=== PATIENT | female | born 1960 | race Caucasian/White ===

== ENCOUNTER → 2018-02-27 10:48 | Outpatient (CLI) | payer OTHER, SELFPAY ==
[2018-02-27 11:08] LABS: RBC Urine None Seen (0-5/HPF); WBC Urine None Seen (0-5/HPF)
[2018-02-27 12:26] LABS: B Type Natriuretic Peptide < 100.0 (<100)
[2018-02-27 12:27] LABS: Alanine Aminotransferase 29 IU/L (9-52); Albumin 4.4 g/dL (3.5-5.0); Alkaline Phosphatase 49 U/L (38-126); Aspartate Aminotransferase 33 IU/L (14-36); Bilirubin Total 0.5 mg/dL (0.2-1.3); Blood Urea Nitrogen 20 mg/dL (7-17); Calcium 9.4 mg/dL (8.4-10.2); Carbon Dioxide 31 mmol/L (22-32); Chloride 104 mmol/L (98-107); Estimated Glomerular Filt Rate > 60.0 mL/min (>60); Globulin 2.2 g/dL (1.7-4.1); Glucose 84 mg/dL (70-100); HEMOLYSIS 17 (0-50); Potassium 4.5 mmol/L (3.4-5.1); Sodium 142 mmol/L (137-145); Total Protein 6.6 g/dL (6.3-8.2)
[2018-02-27 12:32] LABS: Appearance Urine UA CLEAR; Bilirubin Urine UA NEGATIVE (NEGATIVE); Color Urine UA YELLOW; Glucose Urine UA NEGATIVE (Normal); Ketones Urine UA NEGATIVE (NEGATIVE); Leukocyte Esterase Urine UA NEGATIVE (NEGATIVE); Nitrite Urine UA Negative (Negative); Occult Blood Urine UA NEGATIVE (Negative); Protein Urine UA NEGATIVE (Negative); Specific Gravity Urine UA 1.015 (1.000-1.035); Urobilinogen Urine UA 0.2 E.U./dL (0.2); pH Urine UA 7.5 (4.5-8.0)
[2018-02-27 13:11] LABS: Bacteria Urine Occasional (0-1); Culture Indicated Urine Cult Not Indicated; Squamous Epithelial Cell Urine 0-1 /HPF
[2018-02-27 16:59] LABS: Creatinine Urine Random 68.7 mg/dL
[2018-02-27 17:02] LABS: Microalbumi Creatinin Ratio Ur 8.7 ug/mg CR (<30); Microalbumin Urine Random < 0.6 mg/dL (0-1.6)
== END ==
PROVIDERS: PCP Family Medicine; Visit Provider Internal Medicine
DX: G62.9 Polyneuropathy, unspecified (principal); R60.0 Localized edema
CPT/HCPCS: 36415; 80053; 81001; 82043; 82570; 83880

== ENCOUNTER → 2018-12-08 08:46 | Outpatient (CLI) | payer OTHER, SELFPAY ==
--- NOTE | 2018-12-08 08:48 | DI.US.S_ITS ---
PROCEDURE: US ABDOMEN LIMITED INDICATIONS: RUQ ABD PAIN TECHNIQUE: Real-time focused scanning was performed of the abdomen, with image documentation. COMPARISON: [facility], CT, THORAX WITH CONTRAST, 02/08/2017, 23:10. FINDINGS: The liver is normal in size and echotexture without focal intrahepatic mass. No intrahepatic or extrahepatic biliary ductal dilatation. Gallbladder is partially decompressed but otherwise unremarkable. No gallbladder wall thickening, pericholecystic fluid, or gallstones. No abnormal sonographic Dow's. There is an irregular, slightly indistinct hypoechoic mass involving the head and body of the pancreas measuring 4.0 x 2.4 x 3.3 cm. Remainder of the visualized pancreas appears unremarkable. The biliary tree appears nondilated. Common bile duct measures 5 mm in diameter. No ascites. IMPRESSION: Irregular, slightly indistinct hypoechoic mass involving the head and body of the pancreas measuring 4.0 cm in maximum dimension without associated pancreatic ductal or biliary ductal dilatation. Recommend further characterization with nonemergent multiphase contrast enhanced CT or MRI of the abdomen (pancreatic mass protocol). Findings were relayed to the patient's primary care physician's clinical team at 0950 hrs on 12/08/2018. Findings relayed to Julian, clinical staff member. Dictated by: Perez Coleman M.D. on 12/08/2018 at 9:30 Approved by: Perez Coleman M.D. on 12/08/2018 at 10:07
== END ==
PROVIDERS: PCP Family Medicine; Visit Provider Physician Assistant
DX: R10.11 Right upper quadrant pain (principal); K86.9 Disease of pancreas, unspecified
CPT/HCPCS: 76705

== ENCOUNTER → 2018-12-15 06:12 | Outpatient (CLI) | payer OTHER, SELFPAY ==
--- NOTE | 2018-12-15 06:13 | DI.MRI.S_ITS ---
PROCEDURE: MR ABDOMEN WO/W CON INDICATIONS: Abnormal US showing pancreatic mass TECHNIQUE: Coronal HASTE, axial 2D FLASH in- and [id number]; axial breath-hold T2 FSE with fat saturation from the hepatic dome to the iliac crests. Oblique coronal thin-slice and radial thick slab HASTE through the biliary system. Dynamic axial VIBE during administration of contrast. Post-contrast coronal VIBE or 2D FLASH with fat saturation from the hepatic dome to the iliac crests. Optional diffusion weighted imaging and ADC may be performed. COMPARISON: None. FINDINGS: Image quality: Excellent. Pancreas and biliary system: There is a nonenhancing mass present involving the neck/proximal body of the pancreas measuring approximately 2.7 x 1.9 x 2.7 cm, consistent with adenocarcinoma of the pancreas. 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 There are resultant varicosities present. The pancreatic duct is obstructed and dilated. Common duct is likely not obstructed, as it is nondilated. Solid organs: At least 3 small, subcentimeter liver metastatic lesions are identified Gallbladder is unremarkable. Spleen is normal in size and enhancement. No adrenal nodules. Kidneys are normal in size and enhancement, without hydronephrosis. Nodes and vessels: There is a probable metastatic peripancreatic lymph node measuring 1.3 cm.. Aorta and inferior vena cava are normal in size. Bowel and peritoneum: Unenhanced bowel loops are normal in caliber throughout. No free fluid. Lung bases: No basal pleural effusions. Heart size is normal. Bones and soft tissues: No ventral hernias. Bone marrow is normal in overall signal. IMPRESSION: 1. Findings are consistent with a adenocarcinoma of the neck/body of the pancreas with associated peripancreatic metastatic lymph node and small liver metastatic lesions. 2. 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 Dictated by: Thanh Solo M.D. on 12/15/2018 at 11:11 Approved by: Thanh Solo M.D. on 12/15/2018 at 11:35
== END ==
PROVIDERS: PCP Family Medicine; Referring Provider Internal Medicine Medical Oncology; Visit Provider Family Medicine
DX: K86.9 Disease of pancreas, unspecified (principal); D49.0 Neoplasm of unspecified behavior of digestive system; I86.8 Varicose veins of other specified sites; R10.11 Right upper quadrant pain
CPT/HCPCS: 74183

== ENCOUNTER → 2019-01-27 12:13 | Outpatient (CLI) | payer OTHER, SELFPAY ==
--- NOTE | 2019-01-27 12:15 | DI.RAD.S_ITS ---
PROCEDURE: XR ABDOMEN 1V INDICATIONS: constipation TECHNIQUE: One view of the abdomen acquired. COMPARISON: None. FINDINGS: Surgical changes and devices: None. Bowel: Bowel gas pattern is abnormal with generalized colonic obstipation greater on the left than the right. Soft tissues: No suspicious abdominal calcifications. Visualized solid organ contours appear normal in size. Bones: No suspicious bony lesions. IMPRESSION: Generalize colonic obstipation, left greater than right. Dictated by: Rodrigue Allen M.D. on 01/27/2019 at 13:37 Approved by: Rodrigue Allen M.D. on 01/27/2019 at 13:37
--- NOTE | 2019-02-23 15:34 | ONC.MSW ---
Description: T/C-Introductory Navigation Call Activity: Called and left pt a message introducing myself as the OUTSIDE MAINTENANCE WORKER/BRENDEN, that we have received her referral and are actively working on beginning any pre-authorizations we will need, and that we will be f/u with calling her to schedule her initial consult visit with one of our providers. Briefly explained that I am going to be a primary contact for her ongoingly, and left my direct line to call with any further needs/questions that she may have. Will plan to move forward with scheduling by tomorrow.
--- NOTE | 2019-02-24 13:13 | ONC.MSW ---
Description: T/C received from pt Activity: Pt called to confirm that the order from her PCP is only a standing order for ongoing hydration, as needed. She will contact us should she need to schedule.
== END ==
PROVIDERS: PCP Family Medicine; Visit Provider Family Medicine
DX: K59.00 Constipation, unspecified (principal)
CPT/HCPCS: 74018

== ENCOUNTER 2019-01-27 16:10 | Emergency (ER) | payer OTHER, SELFPAY ==
[2019-01-27 16:12] VITALS: BP 118/78; PULSE 106; RESP 20; TEMP 36.7; O2SAT 97
--- NOTE | 2019-01-27 16:33 | DI.CT.S_ITS ---
PROCEDURE: CT ABDOMEN PELVIS W CON INDICATIONS: vomiting, TECHNIQUE: After the administration of intravenous contrast, 5 mm thick sections acquired from the diaphragm to the symphysis. 5 mm coronal and sagittal reformats were acquired. For radiation dose reduction, the following was used: automated exposure control, adjustment of mA and/or kV according to patient size. COMPARISON: [facility], MR, MR ABDOMEN WO/W CON, 12/15/2018, 6:32. FINDINGS: Image quality: Excellent. ABDOMEN: Lung bases: Lung bases are clear. Heart size is normal. Solid organs: Liver is normal in size and demonstrates increased hepatic metastatic disease as indicated by centrally lucent peripherally enhancing and areas of heterogeneous enhancing lesions, with reference to the prior MRI. The total number and volume of metastatic disease within the liver appears to have approximately doubled. Gallbladder is free of inflammation. Biliary system is non dilated. Pancreas has previously been documented as having a mass lesion at the pancreatic head/neck area, which has further enlarged in size, with overall current maximal dimensions of 3.2 cm AP and 5.0 cm transverse. Encasement of the adjacent retroperitoneal vasculature including branches of the celiac axis is present. No embolus is found.. Spleen is normal in size and enhancement. No adrenal nodules. Kidneys demonstrate normal size and enhancement, without hydronephrosis. Peritoneum and bowel: Bowel loops demonstrate normal wall thickness and caliber. No free fluid or air. Nodes and vessels: No retroperitoneal or mesenteric adenopathy by size criteria. Aorta and inferior vena cava are normal in size. 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 Varices are prominent across the upper abdomen from the spleen area both rightward and inferiorly directed. Miscellaneous: No ventral hernias. PELVIS: Genitourinary: Bladder wall thickness is normal. Miscellaneous: No inguinal hernias or adenopathy. Bones: No suspicious bony lesions. No vertebral body compression fractures. IMPRESSION: No intestinal obstruction or perforation is found at further enlargement of the pancreatic infiltrative mass of the retroperitoneum is documented, approximately doubling in overall volume with reference to the prior MRI. Additionally, hepatic metastatic disease also has advanced with an estimated doubling of number and size of metastatic lesions present. 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 Increased venous collateral flow from the splenic area rightward and inferiorly is noted. No gastric or bowel distention is currently found. No sign of acute or chronic cholecystitis. Dictated by: Rodrigue Allen M.D. on 01/27/2019 at 18:05 Approved by: Rodrigue Allen M.D. on 01/27/2019 at 18:11
[2019-01-27 17:13] LABS: Add Manual Diff / Slide Review NO; Basophils Absolute Auto 0 /uL (0-100); Basophils Percent Auto 0.2 % (0-2); Eosinophils Absolute Auto 0 /uL (0-450); Eosinophils Percent Auto 1.2 % (2-4); Hematocrit 38.1 % (36-46); Hemoglobin 12.9 g/dL (12.0-16.0); Lymphocytes Absolute Auto 700 /uL (1100-4500); Lymphocytes Percent Auto 21.7 % (25-40); Mean Corpuscular HGB Conc 33.8 % (30-36); Mean Corpuscular Hemoglobin 29.6 PG (26-34); Mean Corpuscular Volume 87.7 fL (80-100); Monocytes Absolute Auto 100 /uL (0-900); Monocytes Percent Auto 2.4 % (3-14); Neutrophils Absolute Auto 2500 /uL (1500-7000); Neutrophils Percent Auto 74.5 % (50-75); Platelet Count 115 X10^3/uL (150-400); Red Blood Cell Count 4.35 X10^6/uL (4.0-5.2); Red Cell Distribution Width 13.7 % (11.6-14.8); White Blood Cell Count 3.3 X10^3/uL (4.5-11.0)
[2019-01-27] MEDS: ONDANSETRON 4 MG/2 ML INJ IV ×2 (17:13→20:22)
[2019-01-27] MEDS: SODIUM CHLORIDE 0.9% 1,000 ML 1000 ML IV ×2 (17:13→19:10)
[2019-01-27 17:23] LABS: Alanine Aminotransferase 22 IU/L (9-52); Albumin 4.5 g/dL (3.5-5.0); Albumin Globulin Ratio 1.7 (1.0-2.8); Alkaline Phosphatase 61 U/L (38-126); Aspartate Aminotransferase 24 IU/L (14-36); Bilirubin Total 0.9 mg/dL (0.2-1.3); Blood Urea Nitrogen 15 mg/dL (7-17); Calcium 9.6 mg/dL (8.4-10.2); Carbon Dioxide 27 mmol/L (22-32); Chloride 98 mmol/L (98-107); Estimated Glomerular Filt Rate > 60.0 mL/min (>60); Globulin 2.7 g/dL (1.7-4.1); Glucose 95 mg/dL (80-110); HEMOLYSIS < 15 (0-50); Lipase 42 U/L (23-300); Potassium 3.8 mmol/L (3.4-5.1); Sodium 136 mmol/L (137-145); Total Protein 7.2 g/dL (6.3-8.2)
[2019-01-27 18:13] VITALS: BP 136/83; PULSE 85; RESP 16; O2SAT 100
[2019-01-27 19:00] VITALS: BP 141/87; PULSE 84; RESP 16; O2SAT 98
[2019-01-27 20:03] VITALS: BP 141/77; PULSE 83; RESP 16; O2SAT 100
[2019-01-27 21:00] VITALS: BP 129/95; PULSE 94; RESP 17; O2SAT 98
--- NOTE | 2019-01-27 21:01 | ED.NAVMDI ---
HPI - Nausea/Vomiting/Diarrhea <MILES Arzola - Last Filed: 01/27/19 21:13> General Chief complaint: Nausea/Vomiting/Diarrhea Stated complaint: wants hydration Time Seen by Provider: 01/27/19 16:33 Source: patient and family Mode of arrival: ambulatory Limitations: no limitations History of Present Illness HPI Narrative: The patient is a 58-year-old female nonsmoker with history of metastatic pancreatic cancer who presents with her daughter for chief complaint of constipation as well as nausea and vomiting. She has vomited twice since yesterday. The patient states that she has not had a bowel movement in 10 days. She states she feels her stomach ?moving around and states she is not sure whether not she has passed gas. She denies any fevers chest pain shortness of breath. She comes at the request of her PCP, who is concerned about a possible small-bowel obstruction. She had her 1st round of chemotherapy on Friday the . She states she has taken some senna, but not been too aggressive with laxatives as she is afraid for diarrhea related to chemotherapy. Related Data Home Medications Medication Instructions Recorded Confirmed [id number] [Creon] 01/27/19 loperamide 01/27/19 morphine 15 mg PO BID 01/27/19 01/27/19 ondansetron 8 mg PO TID 01/27/19 01/27/19 oxycodone 5 mg PO QID 01/27/19 01/27/19 prochlorperazine maleate 10 mg PO QID 01/27/19 01/27/19 sennosides [senna] 8.6 - 17.2 mg PO BID PRN 01/27/19 01/27/19 Previous Rx's Medication Instructions Recorded omeprazole 20 mg capsule,delayed 20 mg PO DAILY #30 cap 12/05/18 release Allergies Allergy/AdvReac Type Severity Reaction Status Date / Time No Known Drug Allergies Allergy Verified 12/16/18 11:41 Review of Systems <MILES Arzola - Last Filed: 01/27/19 21:13> Review of Systems GENERAL: Denies chills, fatigue, malaise, fever, sweats. HEENT: Denies sinus pain, ear pain, sore throat, difficulty swallowing, dizziness. RESPIRATORY: Denies dyspnea, cough, wheezing, hemoptysis, sputum. CARDIOVASCULAR: Denies chest pain, palpitations, orthopnea, edema, GASTROINTESTINAL: See HPI : Denies dysuria, frequency, incontinence, hematuria, urinary retention. MUSCULOSKELETAL: denies weakness, joint pain, or bony pain SKIN: Denies rash, skin lesions, or other NEUROLOGIC: Denies weakness, headache, numbness, change in speech, confusion, seizures, incoordination. PSYCHIATRIC: No concerning psychosocial issues. 12 point review of systems is negative except for those stated above PFSH <MILES Arzola - Last Filed: 01/27/19 21:13> Medical History Anemia (Resolved) Breast cancer (Resolved 10/13/13) Chicken pox (Resolved ~1964) Hemorrhoids (Resolved 1988) Mumps (Resolved ~1963) Surgical History Anesthesia (Resolved) History of hand surgery (Resolved 06/2009) History of third molar tooth extraction (Resolved 1975) Status post breast lumpectomy (Resolved 11/10/13) Family History Father Dementia Cancer Mother Age: 97 Hypertension Stroke Brother No problems noted. Brother No problems noted. Sister No problems noted. Sister No problems noted. Social History marital status: Smoking Status: Never smoker alcohol intake: current substance use type: does not use Family History Father Dementia Cancer Mother Age: 97 Hypertension Stroke Brother No problems noted. Brother No problems noted. Sister No problems noted. Sister No problems noted. Social History marital status: Smoking Status: Never smoker alcohol intake: current substance use type: does not use Exam <MILES Arzola - Last Filed: 01/27/19 21:13> Narrative Exam Narrative: GENERAL: Thin female in no acute distress HEAD: Atraumatic. Normocephalic. No temporal or scalp tenderness. EYES: Pupils equal round and reactive. Extraocular motions intact. No scleral icterus. No injection or drainage. ENT: Nose without bleeding, purulent drainage or septal hematoma. Throat without erythema, tonsillar hypertrophy or exudate. Uvula midline. Airway patent. NECK: Trachea midline. No JVD or lymphadenopathy. Supple, nontender, no meningeal signs. CARDIOVASCULAR: Regular rate and rhythm RESPIRATORY: Clear to auscultation. Breath sounds equal bilaterally. No wheezes, rales, or rhonchi. No cough. No increased respiratory effort. No accessory muscle use. GASTROINTESTINAL: Abdomen soft, diffusely tender, nondistended. No hepato-splenomegaly, or palpable masses. No guarding. Active bowel sounds all 4 quadrants EXTREMITIES: No clubbing, cyanosis, or edema. No joint tenderness, effusion, or edema noted. BACK: Nontender without deformity or crepitance. No flank tenderness. NEURO: AOx3. SKIN: No rash or erythema. Initial Vital Signs Initial Vital Signs: Vital Signs Temperature 98.0 F 01/27/19 16:12 Pulse Rate 106 H 01/27/19 16:12 Respiratory Rate 20 01/27/19 16:12 Blood Pressure 118/78 01/27/19 16:12 Pulse Oximetry 97 01/27/19 16:12 <Saul Quevedo DO - Last Filed: 01/27/19 22:25> Initial Vital Signs Initial Vital Signs: Vital Signs Temperature 98.0 F 01/27/19 16:12 Pulse Rate 106 H 01/27/19 16:12 Respiratory Rate 20 01/27/19 16:12 Blood Pressure 118/78 01/27/19 16:12 Pulse Oximetry 97 01/27/19 16:12 Course <MILES Arzola - Last Filed: 01/27/19 21:13> Orders Ordered: ED Orders 01/27/19 16:33 CT abdomen pelvis w con Stat 01/27/19 17:02 Complete Blood Count AUTO DIFF Stat Comprehensive Metabolic Panel Stat Lipase Stat Discontinued Medications Sodium Chloride (Normal Saline 0.9%) 1,000 mls @ 1,000 mls/hr IV BOLUS ONE Stop: 01/27/19 17:32 Last Infusion: 01/27/19 18:56 Dose: 0 mls/hr Admin: 01/27/19 17:13 Dose: 1,000 mls/hr Sodium Chloride (Normal Saline 0.9%) 1,000 mls @ 1,000 mls/hr IV BOLUS ONE Stop: 01/27/19 20:03 Last Admin: 01/27/19 19:10 Dose: 1,000 mls/hr Magnesium Citrate (Magnesium Citrate) 300 ml PO NOW ONE Stop: 01/27/19 19:13 Last Admin: 01/27/19 21:55 Dose: Not Given Ondansetron HCl (Zofran) 4 mg IV NOW ONE Stop: 01/27/19 16:34 Last Admin: 01/27/19 17:13 Dose: 4 mg Ondansetron HCl (Zofran) 4 mg IV NOW ONE Stop: 01/27/19 20:11 Last Admin: 01/27/19 20:22 Dose: 4 mg Vital Signs - 8 hr 01/27/19 16:12 01/27/19 18:13 01/27/19 19:00 Temperature 98.0 F Pulse Rate 106 H 85 84 Respiratory Rate 20 16 16 Blood Pressure 118/78 Blood Pressure [Right Arm] 136/83 141/87 H Pulse Oximetry 97 100 98 01/27/19 20:03 01/27/19 21:00 01/27/19 21:53 Temperature Pulse Rate 83 94 H 91 H Respiratory Rate 16 17 16 Blood Pressure 175/84 H Blood Pressure [Right Arm] 141/77 H 129/95 H Pulse Oximetry 100 98 100 <Saul Quevedo, - Last Filed: 01/27/19 22:25> Orders Ordered: ED Orders 01/27/19 16:33 CT abdomen pelvis w con Stat 01/27/19 17:02 Complete Blood Count AUTO DIFF Stat Comprehensive Metabolic Panel Stat Lipase Stat Discontinued Medications Sodium Chloride (Normal Saline 0.9%) 1,000 mls @ 1,000 mls/hr IV BOLUS ONE Stop: 01/27/19 17:32 Last Infusion: 01/27/19 18:56 Dose: 0 mls/hr Admin: 01/27/19 17:13 Dose: 1,000 mls/hr Sodium Chloride (Normal Saline 0.9%) 1,000 mls @ 1,000 mls/hr IV BOLUS ONE Stop: 01/27/19 20:03 Last Admin: 01/27/19 19:10 Dose: 1,000 mls/hr Magnesium Citrate (Magnesium Citrate) 300 ml PO NOW ONE Stop: 01/27/19 19:13 Last Admin: 01/27/19 21:55 Dose: Not Given Ondansetron HCl (Zofran) 4 mg IV NOW ONE Stop: 01/27/19 16:34 Last Admin: 01/27/19 17:13 Dose: 4 mg Ondansetron HCl (Zofran) 4 mg IV NOW ONE Stop: 01/27/19 20:11 Last Admin: 01/27/19 20:22 Dose: 4 mg Vital Signs - 8 hr 01/27/19 16:12 01/27/19 18:13 01/27/19 19:00 Temperature 98.0 F Pulse Rate 106 H 85 84 Respiratory Rate 20 16 16 Blood Pressure 118/78 Blood Pressure [Right Arm] 136/83 141/87 H Pulse Oximetry 97 100 98 01/27/19 20:03 01/27/19 21:00 01/27/19 21:53 Temperature Pulse Rate 83 94 H 91 H Respiratory Rate 16 17 16 Blood Pressure 175/84 H Blood Pressure [Right Arm] 141/77 H 129/95 H Pulse Oximetry 100 98 100 MDM - Nausea/Vomiting/Diarrhea <Linh Be, DWAYNE-BC - Last Filed: 01/27/19 21:13> Lab Data Result diagrams: 01/27/19 17:02 01/27/19 17:02 Lab Results 01/27/19 01/27/19 Range/Units 17:02 17:02 WBC 3.3 L (4.5-11.0) X10^3/uL RBC 4.35 (4.0-5.2) X10^6/uL Hgb 12.9 (12.0-16.0) g/dL Hct 38.1 (36-46) % MCV 87.7 (80-100) fL MCH 29.6 (26-34) PG MCHC 33.8 (30-36) % RDW 13.7 (11.6-14.8) % Plt Count 115 L (150-400) X10^3/uL Neut % (Auto) 74.5 (50-75) % Lymph % (Auto) 21.7 L (25-40) % Rosebud % (Auto) 2.4 L (3-14) % Eos % (Auto) 1.2 L (2-4) % Baso % (Auto) 0.2 (0-2) % Neut # (Auto) 2500 (7963-9582) /uL Lymph # (Auto) 700 L (8843-9417) /uL Rosebud # (Auto) 100 (0-900) /uL Eos # (Auto) 0 (0-450) /uL Baso # (Auto) 0 (0-100) /uL Sodium 136 L (137-145) mmol/L Potassium 3.8 (3.4-5.1) mmol/L Chloride 98 (98-107) mmol/L Carbon Dioxide 27 (22-32) mmol/L BUN 15 (7-17) mg/dL Creatinine 0.50 L (0.52-1.04) mg/dL Estimated GFR > 60.0 (>60) mL/min BUN/Creatinine Ratio 30.0 H (6-22) Glucose 95 (80-110) mg/dL Calcium 9.6 (8.4-10.2) mg/dL Total Bilirubin 0.9 (0.2-1.3) mg/dL AST 24 (14-36) IU/L ALT 22 (9-52) IU/L Alkaline Phosphatase 61 (38-126) U/L Total Protein 7.2 (6.3-8.2) g/dL Albumin 4.5 (3.5-5.0) g/dL Globulin 2.7 (1.7-4.1) g/dL Albumin/Globulin Ratio 1.7 (1.0-2.8) Lipase 42 (23-300) U/L Point of Care Testing Glucose POC 105 Urine Dip Bedside Urine Glucose Negative Bedside Urine Bilirubin - Negative Bedside Urine Ketone ++ 40 Urine Specific Custer 6.5 Bedside Urine Occult Blood - Negative Bedside Urine pH 6.5 Bedside Urine Protein - Negative Bedside Urine Urobilinogen +/- 1mg Bedside Urine Nitrite - Negative Bedside Urine Leukocytes - Negative Esterase Imaging Data Abdominal CT: Radiologist's impression: [address] [address] [address] Scan Report Signed Patient: Marlney Mcdonald LMR#: [id number] : 8Acct:[id number] Age/Sex: 58 / FDate of Service: 01/27/19 Loc: ED Accession Number: [id number] Procedure: CT abdomen pelvis w con Ordering Provider: Linh Wheeler D.O. PROCEDURE: CT ABDOMEN PELVIS W CON INDICATIONS: vomiting, TECHNIQUE: After the administration of intravenous contrast, 5 mm thick sections acquired from the diaphragm to the symphysis. 5 mm coronal and sagittal reformats were acquired. For radiation dose reduction, the following was used: automated exposure control, adjustment of mA and/or kV according to patient size. COMPARISON: [facility], MR, MR ABDOMEN WO/W CON, 12/15/2018, 6:32. FINDINGS: Image quality: Excellent. ABDOMEN: Lung bases: Lung bases are clear. Heart size is normal. Solid organs: Liver is normal in size and demonstrates increased hepatic metastatic disease as indicated by centrally lucent peripherally enhancing and areas of heterogeneous enhancing lesions, with reference to the prior MRI. The total number and volume of metastatic disease within the liver appears to have approximately doubled. Gallbladder is free of inflammation. Biliary system is non dilated. Pancreas has previously been documented as having a mass lesion at the pancreatic head/neck area, which has further enlarged in size, with overall current maximal dimensions of 3.2 cm AP and 5.0 cm transverse. Encasement of the adjacent retroperitoneal vasculature including branches of the celiac axis is present. No embolus is found.. Spleen is normal in size and enhancement. No adrenal nodules. Kidneys demonstrate normal size and enhancement, without hydronephrosis. Peritoneum and bowel: Bowel loops demonstrate normal wall thickness and caliber. No free fluid or air. Nodes and vessels: No retroperitoneal or mesenteric adenopathy by size criteria. Aorta and inferior vena cava are normal in size. 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 Varices are prominent across the upper abdomen from the spleen area both rightward and inferiorly directed. Miscellaneous: No ventral hernias. PELVIS: Genitourinary: Bladder wall thickness is normal. Miscellaneous: No inguinal hernias or adenopathy. Bones: No suspicious bony lesions. No vertebral body compression fractures. IMPRESSION: No intestinal obstruction or perforation is found at further enlargement of the pancreatic infiltrative mass of the retroperitoneum is documented, approximately doubling in overall volume with reference to the prior MRI. Additionally, hepatic metastatic disease also has advanced with an estimated doubling of number and size of metastatic lesions present. 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 Increased venous collateral flow from the splenic area rightward and inferiorly is noted. No gastric or bowel distention is currently found. No sign of acute or chronic cholecystitis. Dictated by: Rodrigue Allen M.D. on 01/27/2019 at 18:05 Approved by: Rodrigue Allen M.D. on 01/27/2019 at 18:11 Abdominal x-ray: Radiologist's impression: [address] [address] XRay Report Signed Patient: Marleny Mcdonald LMR#: [id number] : 8Acct:[id number] Age/Sex: 58 / FDate of Service: 01/27/19 Loc: RAD Accession Number: [id number] Procedure: XR abdomen 1V Ordering Provider: Scott Giraldo MD PROCEDURE: XR ABDOMEN 1V INDICATIONS: constipation TECHNIQUE: One view of the abdomen acquired. COMPARISON: None. FINDINGS: Surgical changes and devices: None. Bowel: Bowel gas pattern is abnormal with generalized colonic obstipation greater on the left than the right. Soft tissues: No suspicious abdominal calcifications. Visualized solid organ contours appear normal in size. Bones: No suspicious bony lesions. IMPRESSION: Generalize colonic obstipation, left greater than right. Dictated by: Rodrigue Allen M.D. on 01/27/2019 at 13:37 Approved by: Rodrigue Allen M.D. on 01/27/2019 at 13:37 [facility] Narrative Medical decision making narrative: The patient is a 58-year-old female who presents for chief complaint of constipation, nausea and vomiting as well as possible small bowel obstruction. She does not have a small-bowel obstruction on her CT, but rather large amounts of constipation. It is noted that her metastatic disease has increased significantly in size since her previous MRI 2 months ago. I discussed this with the patient and her daughter, they state it is known. The patient is able to tolerate a p.o. trial after 2 L of IV fluid as well as 2 doses Zofran. She does have Zofran at home. Given her constipation, she was discharged with a bottle of magnesium citrate. I discussed at length follow up with her PCP, also encouraged MiraLax, senna etc. Encouraged the patient to follow up with [facility]. Images were pushed down for their a follow-up and the patient was given a disc with her images. She states she felt much improved and requested to go home several times. I discussed at length coming back to the ER for any acute concerns as his inability keep down fluids, severe abdominal pain etc. The patient has not vomited throughout her stay in the emergency department. <Saul Quevedo, DO - Last Filed: 01/27/19 22:25> Lab Data Lab Results 01/27/19 01/27/19 Range/Units 17:02 17:02 WBC 3.3 L (4.5-11.0) X10^3/uL RBC 4.35 (4.0-5.2) X10^6/uL Hgb 12.9 (12.0-16.0) g/dL Hct 38.1 (36-46) % MCV 87.7 (80-100) fL MCH 29.6 (26-34) PG MCHC 33.8 (30-36) % RDW 13.7 (11.6-14.8) % Plt Count 115 L (150-400) X10^3/uL Neut % (Auto) 74.5 (50-75) % Lymph % (Auto) 21.7 L (25-40) % Rosebud % (Auto) 2.4 L (3-14) % Eos % (Auto) 1.2 L (2-4) % Baso % (Auto) 0.2 (0-2) % Neut # (Auto) 2500 (8157-6768) /uL Lymph # (Auto) 700 L (2670-0922) /uL Rosebud # (Auto) 100 (0-900) /uL Eos # (Auto) 0 (0-450) /uL Baso # (Auto) 0 (0-100) /uL Sodium 136 L (137-145) mmol/L Potassium 3.8 (3.4-5.1) mmol/L Chloride 98 (98-107) mmol/L Carbon Dioxide 27 (22-32) mmol/L BUN 15 (7-17) mg/dL Creatinine 0.50 L (0.52-1.04) mg/dL Estimated GFR > 60.0 (>60) mL/min BUN/Creatinine Ratio 30.0 H (6-22) Glucose 95 (80-110) mg/dL Calcium 9.6 (8.4-10.2) mg/dL Total Bilirubin 0.9 (0.2-1.3) mg/dL AST 24 (14-36) IU/L ALT 22 (9-52) IU/L Alkaline Phosphatase 61 (38-126) U/L Total Protein 7.2 (6.3-8.2) g/dL Albumin 4.5 (3.5-5.0) g/dL Globulin 2.7 (1.7-4.1) g/dL Albumin/Globulin Ratio 1.7 (1.0-2.8) Lipase 42 (23-300) U/L Point of Care Testing Glucose POC 105 Urine Dip Bedside Urine Glucose Negative Bedside Urine Bilirubin - Negative Bedside Urine Ketone ++ 40 Urine Specific Custer 6.5 Bedside Urine Occult Blood - Negative Bedside Urine pH 6.5 Bedside Urine Protein - Negative Bedside Urine Urobilinogen +/- 1mg Bedside Urine Nitrite - Negative Bedside Urine Leukocytes - Negative Esterase Discharge Plan Departure Patient Disposition: Home Clinical Impression: Nausea Constipation Qualifiers: Constipation type: unspecified constipation type Qualified Code(s): K59.00 - Constipation, unspecified Discharge Date/Time: 01/27/19 21:40 Interventions: ED Discharge Assessment Last Done: 01/27/19 21:53 Instructions: Constipation (Alternative Therapy), DI for Constipation, DI for Nausea -- Adult Activity Restrictions/Additional Instructions: Today your images showed constipation without bowel obstruction. However as I discussed it does show growth of your malignancy. We have sent your images down to [facility] and given you a disc with the images. Please follow up with them as well as your primary care provider. We have sent you home with magnesium citrate, which is a laxative. I also suggest use of Colace, which is a stool softener, senna which is a laxative. You can also use MiraLax and titrate to effect. You can also use warm applesauce, mixed with warm prune juice with a tab of butter on top. Please come back to the emergency department for any acute concerns such as inability keep down fluids, severe abdominal pain, etc. Prescriptions: No Action omeprazole 20 mg capsule,delayed release(DR/EC) 20 mg PO DAILY Qty: 30 RF: 0 sennosides [senna] 8.6 mg tablet 8.6 - 17.2 mg PO BID PRN (Reason: Constipation) RF: 0 loperamide 2 mg capsule RF: 0 prochlorperazine maleate 10 mg tablet 10 mg PO QID RF: 0 ondansetron 8 mg tablet,disintegrating 8 mg PO TID RF: 0 morphine 15 mg tablet extended release 15 mg PO BID RF: 0 oxycodone 5 mg tablet 5 mg PO QID RF: 0 Creon 36,000-114,000- 180,000 unit capsule,delayed release(DR/EC) RF: 0 Referrals: Scott Giraldo MD [Primary Care Provider] - <Saul Quevedo DO - Last Filed: 01/27/19 22:25> Cosign ED Attending Carlos Enrique Attestation: I was available for consultation during this patient's emergency department encounter
--- NOTE | 2019-01-27 21:08 | ED_ITS ---
HPI - Nausea/Vomiting/Diarrhea <MILES Arzola - Last Filed: 01/27/19 21:13> General Chief complaint: Nausea/Vomiting/Diarrhea Stated complaint: wants hydration Time Seen by Provider: 01/27/19 16:33 Source: patient and family Mode of arrival: ambulatory Limitations: no limitations History of Present Illness HPI Narrative: The patient is a 58-year-old female nonsmoker with history of metastatic pancreatic cancer who presents with her daughter for chief complaint of constipation as well as nausea and vomiting. She has vomited twice since yesterday. The patient states that she has not had a bowel movement in 10 days. She states she feels her stomach ?moving around and states she is not sure whether not she has passed gas. She denies any fevers chest pain shortness of breath. She comes at the request of her PCP, who is concerned about a possible small-bowel obstruction. She had her 1st round of chemotherapy on Friday the . She states she has taken some senna, but not been too aggressive with laxatives as she is afraid for diarrhea related to chemotherapy. Related Data Home Medications Medication Instructions Recorded Confirmed [id number] [Creon] 01/27/19 loperamide 01/27/19 morphine 15 mg PO BID 01/27/19 01/27/19 ondansetron 8 mg PO TID 01/27/19 01/27/19 oxycodone 5 mg PO QID 01/27/19 01/27/19 prochlorperazine maleate 10 mg PO QID 01/27/19 01/27/19 sennosides [senna] 8.6 - 17.2 mg PO BID PRN 01/27/19 01/27/19 Previous Rx's Medication Instructions Recorded omeprazole 20 mg capsule,delayed 20 mg PO DAILY #30 cap 12/05/18 release Allergies Allergy/AdvReac Type Severity Reaction Status Date / Time No Known Drug Allergies Allergy Verified 12/16/18 11:41 Review of Systems <MILES Arzola - Last Filed: 01/27/19 21:13> Review of Systems GENERAL: Denies chills, fatigue, malaise, fever, sweats. HEENT: Denies sinus pain, ear pain, sore throat, difficulty swallowing, dizziness. RESPIRATORY: Denies dyspnea, cough, wheezing, hemoptysis, sputum. CARDIOVASCULAR: Denies chest pain, palpitations, orthopnea, edema, GASTROINTESTINAL: See HPI : Denies dysuria, frequency, incontinence, hematuria, urinary retention. MUSCULOSKELETAL: denies weakness, joint pain, or bony pain SKIN: Denies rash, skin lesions, or other NEUROLOGIC: Denies weakness, headache, numbness, change in speech, confusion, seizures, incoordination. PSYCHIATRIC: No concerning psychosocial issues. 12 point review of systems is negative except for those stated above PFSH <MILES Arzola - Last Filed: 01/27/19 21:13> Medical History Anemia (Resolved) Breast cancer (Resolved 10/13/13) Chicken pox (Resolved ~1964) Hemorrhoids (Resolved 1988) Mumps (Resolved ~1963) Surgical History Anesthesia (Resolved) History of hand surgery (Resolved 06/2009) History of third molar tooth extraction (Resolved 1975) Status post breast lumpectomy (Resolved 11/10/13) Family History Father Dementia Cancer Mother Age: 97 Hypertension Stroke Brother No problems noted. Brother No problems noted. Sister No problems noted. Sister No problems noted. Social History marital status: Smoking Status: Never smoker alcohol intake: current substance use type: does not use Family History Father Dementia Cancer Mother Age: 97 Hypertension Stroke Brother No problems noted. Brother No problems noted. Sister No problems noted. Sister No problems noted. Social History marital status: Smoking Status: Never smoker alcohol intake: current substance use type: does not use Exam <MILES Arzola - Last Filed: 01/27/19 21:13> Narrative Exam Narrative: GENERAL: Thin female in no acute distress HEAD: Atraumatic. Normocephalic. No temporal or scalp tenderness. EYES: Pupils equal round and reactive. Extraocular motions intact. No scleral icterus. No injection or drainage. ENT: Nose without bleeding, purulent drainage or septal hematoma. Throat without erythema, tonsillar hypertrophy or exudate. Uvula midline. Airway patent. NECK: Trachea midline. No JVD or lymphadenopathy. Supple, nontender, no meningeal signs. CARDIOVASCULAR: Regular rate and rhythm RESPIRATORY: Clear to auscultation. Breath sounds equal bilaterally. No wheezes, rales, or rhonchi. No cough. No increased respiratory effort. No accessory muscle use. GASTROINTESTINAL: Abdomen soft, diffusely tender, nondistended. No hepato- splenomegaly, or palpable masses. No guarding. Active bowel sounds all 4 quadrants EXTREMITIES: No clubbing, cyanosis, or edema. No joint tenderness, effusion, or edema noted. BACK: Nontender without deformity or crepitance. No flank tenderness. NEURO: AOx3. SKIN: No rash or erythema. Initial Vital Signs Initial Vital Signs: Vital Signs Temperature 98.0 F 01/27/19 16:12 Pulse Rate 106 H 01/27/19 16:12 Respiratory Rate 20 01/27/19 16:12 Blood Pressure 118/78 01/27/19 16:12 Pulse Oximetry 97 01/27/19 16:12 <Saul Quevedo DO - Last Filed: 01/27/19 22:25> Initial Vital Signs Initial Vital Signs: Vital Signs Temperature 98.0 F 01/27/19 16:12 Pulse Rate 106 H 01/27/19 16:12 Respiratory Rate 20 01/27/19 16:12 Blood Pressure 118/78 01/27/19 16:12 Pulse Oximetry 97 01/27/19 16:12 Course <MILES Arzola - Last Filed: 01/27/19 21:13> Orders Ordered: ED Orders 01/27/19 16:33 CT abdomen pelvis w con Stat 01/27/19 17:02 Complete Blood Count AUTO DIFF Stat Comprehensive Metabolic Panel Stat Lipase Stat Discontinued Medications Sodium Chloride (Normal Saline 0.9%) 1,000 mls @ 1,000 mls/hr IV BOLUS ONE Stop: 01/27/19 17:32 Last Infusion: 01/27/19 18:56 Dose: 0 mls/hr Admin: 01/27/19 17:13 Dose: 1,000 mls/hr Sodium Chloride (Normal Saline 0.9%) 1,000 mls @ 1,000 mls/hr IV BOLUS ONE Stop: 01/27/19 20:03 Last Admin: 01/27/19 19:10 Dose: 1,000 mls/hr Magnesium Citrate (Magnesium Citrate) 300 ml PO NOW ONE Stop: 01/27/19 19:13 Last Admin: 01/27/19 21:55 Dose: Not Given Ondansetron HCl (Zofran) 4 mg IV NOW ONE Stop: 01/27/19 16:34 Last Admin: 01/27/19 17:13 Dose: 4 mg Ondansetron HCl (Zofran) 4 mg IV NOW ONE Stop: 01/27/19 20:11 Last Admin: 01/27/19 20:22 Dose: 4 mg Vital Signs - 8 hr 01/27/19 16:12 01/27/19 18:13 01/27/19 19:00 Temperature 98.0 F Pulse Rate 106 H 85 84 Respiratory Rate 20 16 16 Blood Pressure 118/78 Blood Pressure [Right Arm] 136/83 141/87 H Pulse Oximetry 97 100 98 01/27/19 20:03 01/27/19 21:00 01/27/19 21:53 Temperature Pulse Rate 83 94 H 91 H Respiratory Rate 16 17 16 Blood Pressure 175/84 H Blood Pressure [Right Arm] 141/77 H 129/95 H Pulse Oximetry 100 98 100 <Saul Quevedo, - Last Filed: 01/27/19 22:25> Orders Ordered: ED Orders 01/27/19 16:33 CT abdomen pelvis w con Stat 01/27/19 17:02 Complete Blood Count AUTO DIFF Stat Comprehensive Metabolic Panel Stat Lipase Stat Discontinued Medications Sodium Chloride (Normal Saline 0.9%) 1,000 mls @ 1,000 mls/hr IV BOLUS ONE Stop: 01/27/19 17:32 Last Infusion: 01/27/19 18:56 Dose: 0 mls/hr Admin: 01/27/19 17:13 Dose: 1,000 mls/hr Sodium Chloride (Normal Saline 0.9%) 1,000 mls @ 1,000 mls/hr IV BOLUS ONE Stop: 01/27/19 20:03 Last Admin: 01/27/19 19:10 Dose: 1,000 mls/hr Magnesium Citrate (Magnesium Citrate) 300 ml PO NOW ONE Stop: 01/27/19 19:13 Last Admin: 01/27/19 21:55 Dose: Not Given Ondansetron HCl (Zofran) 4 mg IV NOW ONE Stop: 01/27/19 16:34 Last Admin: 01/27/19 17:13 Dose: 4 mg Ondansetron HCl (Zofran) 4 mg IV NOW ONE Stop: 01/27/19 20:11 Last Admin: 01/27/19 20:22 Dose: 4 mg Vital Signs - 8 hr 01/27/19 16:12 01/27/19 18:13 01/27/19 19:00 Temperature 98.0 F Pulse Rate 106 H 85 84 Respiratory Rate 20 16 16 Blood Pressure 118/78 Blood Pressure [Right Arm] 136/83 141/87 H Pulse Oximetry 97 100 98 01/27/19 20:03 01/27/19 21:00 01/27/19 21:53 Temperature Pulse Rate 83 94 H 91 H Respiratory Rate 16 17 16 Blood Pressure 175/84 H Blood Pressure [Right Arm] 141/77 H 129/95 H Pulse Oximetry 100 98 100 MDM - Nausea/Vomiting/Diarrhea <Linh Be, DWAYNE-BC - Last Filed: 01/27/19 21:13> Lab Data Result diagrams: 01/27/19 17:02 01/27/19 17:02 Lab Results 01/27/19 01/27/19 Range/Units 17:02 17:02 WBC 3.3 L (4.5-11.0) X10^3/uL RBC 4.35 (4.0-5.2) X10^6/uL Hgb 12.9 (12.0-16.0) g/dL Hct 38.1 (36-46) % MCV 87.7 (80-100) fL MCH 29.6 (26-34) PG MCHC 33.8 (30-36) % RDW 13.7 (11.6-14.8) % Plt Count 115 L (150-400) X10^3/uL Neut % (Auto) 74.5 (50-75) % Lymph % (Auto) 21.7 L (25-40) % [place] % (Auto) 2.4 L (3-14) % Eos % (Auto) 1.2 L (2-4) % Baso % (Auto) 0.2 (0-2) % Neut # (Auto) 2500 (2827-4398) /uL Lymph # (Auto) 700 L (6953-1763) /uL [place] # (Auto) 100 (0-900) /uL Eos # (Auto) 0 (0-450) /uL Baso # (Auto) 0 (0-100) /uL Sodium 136 L (137-145) mmol/L Potassium 3.8 (3.4-5.1) mmol/L Chloride 98 (98-107) mmol/L Carbon Dioxide 27 (22-32) mmol/L BUN 15 (7-17) mg/dL Creatinine 0.50 L (0.52-1.04) mg/dL Estimated GFR > 60.0 (>60) mL/min BUN/Creatinine Ratio 30.0 H (6-22) Glucose 95 (80-110) mg/dL Calcium 9.6 (8.4-10.2) mg/dL Total Bilirubin 0.9 (0.2-1.3) mg/dL AST 24 (14-36) IU/L ALT 22 (9-52) IU/L Alkaline Phosphatase 61 (38-126) U/L Total Protein 7.2 (6.3-8.2) g/dL Albumin 4.5 (3.5-5.0) g/dL Globulin 2.7 (1.7-4.1) g/dL Albumin/Globulin Ratio 1.7 (1.0-2.8) Lipase 42 (23-300) U/L Point of Care Testing Glucose POC 105 Urine Dip Bedside Urine Glucose Negative Bedside Urine Bilirubin - Negative Bedside Urine Ketone ++ 40 Urine Specific [place] 6.5 Bedside Urine Occult Blood - Negative Bedside Urine pH 6.5 Bedside Urine Protein - Negative Bedside Urine Urobilinogen +/- 1mg Bedside Urine Nitrite - Negative Bedside Urine Leukocytes - Negative Esterase Imaging Data Abdominal CT: Radiologist's impression: [address] [address] [address] Scan Report Signed Patient: Marleny Mcdonald LMR#: [id number] : 8Acct:[id number] Age/Sex: 58 / FDate of Service: 01/27/19 Loc: ED Accession Number: [id number] Procedure: CT abdomen pelvis w con Ordering Provider: Linh Wheeler D.O. PROCEDURE: CT ABDOMEN PELVIS W CON INDICATIONS: vomiting, TECHNIQUE: After the administration of intravenous contrast, 5 mm thick sections acquired from the diaphragm to the symphysis. 5 mm coronal and sagittal reformats were acquired. For radiation dose reduction, the following was used: automated exposure control, adjustment of mA and/or kV according to patient size. COMPARISON: [facility], MR, MR ABDOMEN WO/W CON, 12/15/2018, 6:32. FINDINGS: Image quality: Excellent. ABDOMEN: Lung bases: Lung bases are clear. Heart size is normal. Solid organs: Liver is normal in size and demonstrates increased hepatic metastatic disease as indicated by centrally lucent peripherally enhancing and areas of heterogeneous enhancing lesions, with reference to the prior MRI. The total number and volume of metastatic disease within the liver appears to have approximately doubled. Gallbladder is free of inflammation. Biliary system is non dilated. Pancreas has previously been documented as having a mass lesion at the pancreatic head/neck area, which has further enlarged in size, with overall current maximal dimensions of 3.2 cm AP and 5.0 cm transverse. Encasement of the adjacent retroperitoneal vasculature including branches of the celiac axis is present. No embolus is found.. Spleen is normal in size and enhancement. No adrenal nodules. Kidneys demonstrate normal size and enhan cement, without hydronephrosis. Peritoneum and bowel: Bowel loops demonstrate normal wall thickness and caliber. No free fluid or air. Nodes and vessels: No retroperitoneal or mesenteric adenopathy by size criteria. Aorta and inferior vena cava are normal in size. 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 Varices are prominent across the upper abdomen from the spleen area both rightward and inferiorly directed. Miscellaneous: No ventral hernias. PELVIS: Genitourinary: Bladder wall thickness is normal. Miscellaneous: No inguinal hernias or adenopathy. Bones: No suspicious bony lesions. No vertebral body compression fractures. IMPRESSION: No intestinal obstruction or perforation is found at further enlargement of the pancreatic infiltrative mass of the retroperitoneum is documented, approximately doubling in overall volume with reference to the prior MRI. Additionally, hepatic metastatic disease also has advanced with an estimated doubling of number and size of metastatic lesions present. 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 Increased venous collateral flow from the splenic area rightward and inferiorly is noted. No gastric or bowel distention is currently found. No sign of acute or chronic cholecystitis. Dictated by: Rodrigue Allen M.D. on 01/27/2019 at 18:05 Approved by: Rodrigue Allen M.D. on 01/27/2019 at 18:11 Abdominal x-ray: Radiologist's impression: [address] [address] XRay Report Signed Patient: Marleny Mcdonald LMR#: [id number] : 8Acct:[id number] Age/Sex: 58 / FDate of Service: 01/27/19 Loc: RAD Accession Number: [id number] Procedure: XR abdomen 1V Ordering Provider: Scott Giraldo MD PROCEDURE: XR ABDOMEN 1V INDICATIONS: constipation TECHNIQUE: One view of the abdomen acquired. COMPARISON: None. FINDINGS: Surgical changes and devices: None. Bowel: Bowel gas pattern is abnormal with generalized colonic obstipation greater on the left than the right. Soft tissues: No suspicious abdominal calcifications. Visualized solid organ contours appear normal in size. Bones: No suspicious bony lesions. IMPRESSION: Generalize colonic obstipation, left greater than right. Dictated by: Rodrigue Allen M.D. on 01/27/2019 at 13:37 Approved by: Rodrigue Allen M.D. on 01/27/2019 at 13:37 [facility] Narrative Medical decision making narrative: The patient is a 58-year-old female who presents for chief complaint of constipation, nausea and vomiting as well as possible small bowel obstruction. She does not have a small-bowel obstruction on her CT, but rather large amounts of constipation. It is noted that her metastatic disease has increased significantly in size since her previous MRI 2 months ago. I discussed this with the patient and her daughter, they state it is known. The patient is able to tolerate a p.o. trial after 2 L of IV fluid as well as 2 doses Zofran. She does have Zofran at home. Given her constipation, she was discharged with a bottle of magnesium citrate. I discussed at length follow up with her PCP, also encouraged MiraLax, senna etc. Encouraged the patient to follow up with [facility]. Images were pushed down for their a follow-up and the patient was given a disc with her images. She states she felt much improved and requested to go home several times. I discussed at length coming back to the ER for any acute concerns as his inability keep down fluids, severe abdominal pain etc. The patient has not vomited throughout her stay in the emergency department. <Saul Quevedo, DO - Last Filed: 01/27/19 22:25> Lab Data Lab Results 01/27/19 01/27/19 Range/Units 17:02 17:02 WBC 3.3 L (4.5-11.0) X10^3/uL RBC 4.35 (4.0-5.2) X10^6/uL Hgb 12.9 (12.0-16.0) g/dL Hct 38.1 (36-46) % MCV 87.7 (80-100) fL MCH 29.6 (26-34) PG MCHC 33.8 (30-36) % RDW 13.7 (11.6-14.8) % Plt Count 115 L (150-400) X10^3/uL Neut % (Auto) 74.5 (50-75) % Lymph % (Auto) 21.7 L (25-40) % [place] % (Auto) 2.4 L (3-14) % Eos % (Auto) 1.2 L (2-4) % Baso % (Auto) 0.2 (0-2) % Neut # (Auto) 2500 (6494-2134) /uL Lymph # (Auto) 700 L (4182-2887) /uL [place] # (Auto) 100 (0-900) /uL Eos # (Auto) 0 (0-450) /uL Baso # (Auto) 0 (0-100) /uL Sodium 136 L (137-145) mmol/L Potassium 3.8 (3.4-5.1) mmol/L Chloride 98 (98-107) mmol/L Carbon Dioxide 27 (22-32) mmol/L BUN 15 (7-17) mg/dL Creatinine 0.50 L (0.52-1.04) mg/dL Estimated GFR > 60.0 (>60) mL/min BUN/Creatinine Ratio 30.0 H (6-22) Glucose 95 (80-110) mg/dL Calcium 9.6 (8.4-10.2) mg/dL Total Bilirubin 0.9 (0.2-1.3) mg/dL AST 24 (14-36) IU/L ALT 22 (9-52) IU/L Alkaline Phosphatase 61 (38-126) U/L Total Protein 7.2 (6.3-8.2) g/dL Albumin 4.5 (3.5-5.0) g/dL Globulin 2.7 (1.7-4.1) g/dL Albumin/Globulin Ratio 1.7 (1.0-2.8) Lipase 42 (23-300) U/L Point of Care Testing Glucose POC 105 Urine Dip Bedside Urine Glucose Negative Bedside Urine Bilirubin - Negative Bedside Urine Ketone ++ 40 Urine Specific [place] 6.5 Bedside Urine Occult Blood - Negative Bedside Urine pH 6.5 Bedside Urine Protein - Negative Bedside Urine Urobilinogen +/- 1mg Bedside Urine Nitrite - Negative Bedside Urine Leukocytes - Negative Esterase Discharge Plan Departure Patient Disposition: Home Clinical Impression: Nausea Constipation Qualifiers: Constipation type: unspecified constipation type Qualified Code(s): K59.00 - Constipation, unspecified Discharge Date/Time: 01/27/19 21:40 Interventions: ED Discharge Assessment Last Done: 01/27/19 21:53 Instructions: Constipation (Alternative Therapy), DI for Constipation, DI for Nausea -- Adult Activity Restrictions/Additional Instructions: Today your images showed constipation without bowel obstruction. However as I discussed it does show growth of your malignancy. We have sent your images down to [facility] and given you a disc with the images. Please follow up with them as well as your primary care provider. We have sent you home with magnesium citrate, which is a laxative. I also suggest use of Colace, which is a stool softener, senna which is a laxative. You can also use MiraLax and titrate to effect. You can also use warm applesauce, mixed with warm prune juice with a tab of butt er on top. Please come back to the emergency department for any acute concerns such as inability keep down fluids, severe abdominal pain, etc. Prescriptions: No Action omeprazole 20 mg capsule,delayed release(DR/EC) 20 mg PO DAILY Qty: 30 RF: 0 sennosides [senna] 8.6 mg tablet 8.6 - 17.2 mg PO BID PRN (Reason: Constipation) RF: 0 loperamide 2 mg capsule RF: 0 prochlorperazine maleate 10 mg tablet 10 mg PO QID RF: 0 ondansetron 8 mg tablet,disintegrating 8 mg PO TID RF: 0 morphine 15 mg tablet extended release 15 mg PO BID RF: 0 oxycodone 5 mg tablet 5 mg PO QID RF: 0 Creon 36,000-114,000- 180,000 unit capsule,delayed release(DR/EC) RF: 0 Referrals: Scott Giraldo MD [Primary Care Provider] - <Saul Quevedo DO - Last Filed: 01/27/19 22:25> Cosign ED Attending Carlos Enrique Attestation: I was available for consultation during this patient's emergency department encounter
[2019-01-27 21:53] VITALS: BP 175/84; PULSE 91; RESP 16; O2SAT 100
--- NOTE | 2019-02-05 13:45 | PC.NURSE ---
2nd liter of Normal Saline infused for FRANKIE Malone prior to discharge at 2153.
== END 2019-01-27 21:40 | disposition home or self-care (01) ==
PROVIDERS: Emergency Medicine; Emergency Provider Nurse Practitioner Family; PCP Family Medicine
DX: K59.00 Constipation, unspecified (principal)
CPT/HCPCS: 36591; 74018; 74177; 80053; 81003; 82962; 83690; 85025; 96361; 96374; 96376; 99283; 99285; J2405; Q9967

== ENCOUNTER → 2020-02-11 12:58 | Outpatient (CLI) | payer OTHER, SELFPAY ==
--- NOTE | 2020-02-11 13:06 | DI.RAD.S_ITS ---
PROCEDURE: XR ABDOMEN MIN 2V INDICATIONS: PANCREAS ca WITH VOMITING, ASSESS FOR OBSTRUCTIVE CAUSE TECHNIQUE: 2 views of the abdomen were acquired. COMPARISON: [facility], , MR ABDOMEN WO/W CON, 12/15/2018, 6:32. [facility], US, US ABDOMEN LIMITED, 12/08/2018, 9:03. [facility], CR, XR ABDOMEN 1V, 01/27/2019, 12:26. FINDINGS: Surgical changes and devices: None. Bowel: No pneumoperitoneum. The bowel gas pattern is normal. Soft tissues: No masses; visualized solid organ contours appear normal in size. No suspicious abdominal calcifications. Moderate colonic obstipation. Bones: No suspicious bony abnormalities. IMPRESSION: Moderate colonic obstipation, no sign of intestinal obstruction or perforation found. Dictated by: Rodrigue Allen M.D. on 02/11/2020 at 14:00 Approved by: Rodrigue Allen M.D. on 02/11/2020 at 14:02
== END ==
PROVIDERS: PCP Family Medicine
DX: C25.9 Malignant neoplasm of pancreas, unspecified (principal); R11.10 Vomiting, unspecified; K59.00 Constipation, unspecified
CPT/HCPCS: 74019

== ENCOUNTER 2020-02-11 16:55 | Emergency (ER) | payer OTHER, SELFPAY ==
[2020-02-11 17:03] VITALS: BP 119/79; PULSE 88; RESP 14; TEMP 36.6; O2SAT 99; BMI 17.7
--- NOTE | 2020-02-11 18:27 | ED.NAVMDI ---
HPI - Nausea/Vomiting/Diarrhea General Chief complaint: Nausea/Vomiting/Diarrhea Stated complaint: NEEDS TO BE HYDRATED Time Seen by Provider: 02/11/20 18:27 Source: patient Mode of arrival: Ambulatory Limitations: no limitations History of Present Illness HPI Narrative: 59F non smoker with history of pancreatic CA presents with family and the chief complaint of persistent vomiting for the past three days. She gets biweekly chemo at [facility] and completed her most recent course one week ago. She frequently becomes nauseated with poor appetite 2-3 days after chemo, but usually would bounce back by now. She is a bit fatigued and weak now. She denies fever, chills, runny nose, sore throat, chest pain, cough, or shortness of breath. She denies any abdominal pain. She states most anything she eats or drinks will eventually come up within a few hours. She has had some medication changes and states she also just had ritalin added to her regimen. She's had no recent travel and denies exposure to persons known to have COVID. Related Data Home Medications Medication Instructions Recorded Confirmed oxycodone [Roxicodone] 5 mg PO QID 01/27/19 02/11/20 prochlorperazine maleate 10 mg PO QID 01/27/19 02/11/20 [Compazine] sennosides [senna] 8.6 - 17.2 mg PO BID PRN 01/27/19 02/11/20 folfirinox IV 09/20/19 irinotecan 100 mg/5 mL intravenous 100 mg IV ONCE 09/20/19 02/11/20 solution loperamide 2 mg tablet 2 mg PO Q6HR 09/20/19 02/11/20 lorazepam 0.5 mg tablet 0.5 mg PO TID PRN 09/20/19 02/11/20 morphine 20 mg capsule,extended 20 mg PO BID cap 09/20/19 02/11/20 release pellets methylphenidate HCl [Ritalin] 5 mg PO BID 02/11/20 02/11/20 venlafaxine [Effexor XR] 75 mg PO DAILY 02/11/20 02/11/20 Previous Rx's Medication Instructions Recorded omeprazole 20 mg capsule,delayed 20 mg PO DAILY #30 cap 12/05/18 release bacitracin 500 unit/gram topical 1 applictn TOP Q12H #28 gram 09/21/19 ointment Allergies Allergy/AdvReac Type Severity Reaction Status Date / Time No Known Drug Allergies Allergy Verified 09/20/19 13:21 Review of Systems Constitutional Constitutional: Denies chills, Reports fatigue, Denies fever(s), Denies frequent falls, Denies lethargy and Reports weakness Eyes Eyes: Denies change in vision, Denies eye discharge, Denies irritation and Denies loss of vision ENT Ears, Nose, Mouth, and Throat: Denies change in voice, Denies dizziness, Denies neck pain, Denies sore throat and Denies throat swelling Cardiovascular Cardiovascular: Denies chest pain, Denies irregular heart rhythm, Denies lightheadedness, Denies palpitations, Denies dyspnea, Denies dyspnea on exertion and Denies orthopnea Respiratory Respiratory: Denies cough, Denies dyspnea, Denies dyspnea on exertion and Denies wheezing Gastrointestinal Gastrointestinal: Denies abdominal pain, Denies change in bowel habits, Denies diarrhea, Reports nausea and Reports vomiting Musculoskeletal Musculoskeletal: Denies neck pain and Denies numbness Integumentary/Breasts Skin/Breast: Denies pruritus, Denies erythema, Denies rash and Denies wounds Neurologic Neurologic: Denies behavioral changes, Denies confusion, Denies dizziness, Denies frequent falls, Denies loss of vision, Denies numbness and Reports weakness Psychiatric Psychiatric: Denies anxiety, Denies behavioral changes, Denies confusion, Denies depression, Denies homicidal ideation and Denies suicidal ideation Endocrine Endocrine: Reports fatigue, Denies flushing and Denies palpitations Hematologic/Lymphatic Hematologic/Lymphatic: Denies easy bruising Allergic/Immunologic Allergic/Immunologic: Denies urticaria, Denies throat swelling and Denies wheezing Patient History Medical History Anemia (Resolved) Breast cancer (Resolved 10/13/13) Chicken pox (Resolved ~1964) Hemorrhoids (Resolved 1988) Mumps (Resolved ~1963) Surgical History Anesthesia (Resolved) History of hand surgery (Resolved 06/2009) History of third molar tooth extraction (Resolved 1975) Status post breast lumpectomy (Resolved 11/10/13) Family History Father Dementia Cancer Mother Age: 98 Hypertension Stroke Brother No problems noted. Brother No problems noted. Sister No problems noted. Sister No problems noted. Social History marital status: Smoking Status: Never smoker alcohol intake: current substance use type: does not use Smoking Status: Never smoker alcohol intake frequency: 0-2 drinks per day Substance Use Type: does not use Exam Narrative Exam Narrative: GENERAL: [58 long] year old patient appears stated age. Chronically ill with some evidence of malnourished min including mild temporal wasting HEAD: Atraumatic. Normocephalic. EYES: Pupils equal round and reactive. Extraocular motions intact. No scleral icterus. No injection or drainage. ENT: Dry mucous membranes Nose without bleeding, purulent drainage. Throat without erythema, tonsillar hypertrophy or exudate. Airway patent. NECK: Trachea midline. Non tender CARDIOVASCULAR: Regular rate and rhythm without murmurs, gallops, or rubs. RESPIRATORY: Clear to auscultation. Breath sounds equal bilaterally. No wheezes, rales, or rhonchi. GASTROINTESTINAL: Abdomen soft, non-tender, nondistended. Decreased BM bilaterally EXTREMITIES: No edema or joint tenderness. BACK: Nontender without deformity or crepitance. No flank tenderness. NEURO: AOx3. SKIN: No rash or erythema of visible areas Initial Vital Signs Initial Vital Signs: Vital Signs Temperature 97.9 F 02/11/20 17:03 Pulse Rate 88 02/11/20 17:03 Respiratory Rate 14 02/11/20 17:03 Blood Pressure 119/79 02/11/20 17:03 Pulse Oximetry 99 02/11/20 17:03 Course Orders Ordered: ED Orders 02/11/20 18:49 Complete Blood Count AUTO DIFF Stat Comprehensive Metabolic Panel Stat Discontinued Medications Sodium Chloride (Normal Saline 0.9%) 1,000 mls @ 1,000 mls/hr IV BOLUS ONE Stop: 02/11/20 19:27 Last Infusion: 02/11/20 21:56 Dose: 0 mls/hr Documented by: Admin: 02/11/20 19:13 Dose: 1,000 mls/hr Documented by: SALMA Sodium Chloride (Normal Saline 0.9%) 1,000 mls @ 1,000 mls/hr IV BOLUS ONE Stop: 02/11/20 21:10 Last Admin: 02/11/20 21:56 Dose: 1,000 mls/hr Documented by: ALEJANDRA Morphine Sulfate (Morphine) 4 mg IV NOW ONE Stop: 02/11/20 19:18 Last Admin: 02/11/20 19:23 Dose: 4 mg Documented by: SALMA Ondansetron HCl (Zofran) 4 mg IV NOW ONE Stop: 02/11/20 18:29 Last Admin: 02/11/20 19:13 Dose: 4 mg Documented by: SALMA Prochlorperazine (Compazine) 10 mg IV NOW ONE Stop: 02/11/20 19:18 Last Admin: 02/11/20 19:19 Dose: 10 mg Documented by: SALMA Vital Signs Vital signs: Vital Signs - 8 hr 02/12/20 00:03 02/12/20 00:06 02/12/20 00:40 Pulse Rate 82 77 Pulse Rate [Orthostatic Lying] 74 Pulse Rate [Orthostatic Sitting] 77 Pulse Rate [Orthostatic Standing] 97 H Respiratory Rate 14 14 Blood Pressure 125/65 Blood Pressure [Orthostatic Lying] 135/63 Blood Pressure [Orthostatic Sitting] 136/64 Blood Pressure [Orthostatic Standing] 123/61 Pulse Oximetry 99 98 MDM - Nausea/Vomiting/Diarrhea Lab Data Result diagrams: 02/11/20 18:49 02/11/20 18:49 Labs: Lab Results 02/11/20 02/11/20 Range/Units 18:49 18:49 WBC 8.9 (4.5-11.0) X10^3/uL RBC 3.81 L (4.0-5.2) X10^6/uL Hgb 11.4 L (12.0-16.0) g/dL Hct 34.6 L (36-46) % MCV 91.0 (80-100) fL MCH 29.9 (26-34) PG MCHC 32.9 (30-36) % RDW 16.7 H (11.6-14.8) % Plt Count 119 L (150-400) X10^3/uL Neut % (Auto) 82.9 H (50-75) % Lymph % (Auto) 8.2 L (25-40) % [place] % (Auto) 8.3 (3-14) % Eos % (Auto) 0.4 L (2-4) % Baso % (Auto) 0.2 (0-2) % Neut # (Auto) 7400 H (2224-7222) /uL Lymph # (Auto) 700 L (7905-2629) /uL [place] # (Auto) 700 (0-900) /uL Eos # (Auto) 0 (0-450) /uL Baso # (Auto) 0 (0-100) /uL Sodium 139 (137-145) mmol/L Potassium 3.6 (3.4-5.1) mmol/L Chloride 101 (98-107) mmol/L Carbon Dioxide 29 (22-32) mmol/L BUN 10 (7-17) mg/dL Creatinine 0.55 (0.52-1.04) mg/dL Estimated GFR > 60.0 (>60) mL/min BUN/Creatinine Ratio 18.2 (6-22) Glucose 88 (80-110) mg/dL Calcium 10.0 (8.4-10.2) mg/dL Total Bilirubin 0.6 (0.2-1.3) mg/dL AST 44 H (14-36) IU/L ALT 54 H (<35) IU/L Alkaline Phosphatase 172 H (38-126) U/L Total Protein 7.8 (6.3-8.2) g/dL Albumin 5.0 (3.5-5.0) g/dL Globulin 2.8 (1.7-4.1) g/dL Albumin/Globulin Ratio 1.8 (1.0-2.8) Urine Dip Bedside Urine Glucose Negative Bedside Urine Bilirubin + 1 Bedside Urine Ketone +/- 5 Urine Specific [place] 1.025 Bedside Urine Occult Blood - Negative Bedside Urine pH 5.5 Bedside Urine Protein +/- 15 Bedside Urine Urobilinogen +/- 1mg Bedside Urine Nitrite - Negative Bedside Urine Leukocytes + 70 Esterase Imaging Data Abdominal x-ray: Radiologist's Impression: Marleny Mcdonald 59 F [address] [address] XRay Report Signed Patient: Harry,Marleny LMR#: [id number] : [id number]:[id number] Age/Sex: 59 / FDate of Service: 02/11/20 Loc: RAD Accession Number: [id number] Procedure: XR abdomen min 2V Ordering Provider: Marlon Humphries PROCEDURE: XR ABDOMEN MIN 2V INDICATIONS: PANCREAS ca WITH VOMITING, ASSESS FOR OBSTRUCTIVE CAUSE TECHNIQUE: 2 views of the abdomen were acquired. COMPARISON: [facility], MR, MR ABDOMEN WO/W CON, 12/15/2018, 6:32. [facility], US, US ABDOMEN LIMITED, 12/08/2018, 9:03. [facility], CR, XR ABDOMEN 1V, 01/27/2019, 12:26. FINDINGS: Surgical changes and devices: None. Bowel: No pneumoperitoneum. The bowel gas pattern is normal. Soft tissues: No masses; visualized solid organ contours appear normal in size. No suspicious abdominal calcifications. Moderate colonic obstipation. Bones: No suspicious bony abnormalities. IMPRESSION: Moderate colonic obstipation, no sign of intestinal obstruction or perforation found. Dictated by: Rodrigue Allen M.D. on 02/11/2020 at 14:00 Approved by: Rodrigue Allen M.D. on 02/11/2020 at 14:[address] [facility] Narrative Medical decision making narrative: Patient feeling great improvement after above stated therapies. Keeping water and ice chips down. Reassuring labs. Tolerates orthostatics and ambulation trial without difficulty. Presentation likely a combination of factors including post chem dehydration and nausea, constipation, addition of new medications. Return precautions given, questions answered to her apparent satisfaction. Discharge Plan Departure Patient Disposition: Home Clinical Impression: Acute dehydration Vomiting Qualifiers: Vomiting type: unspecified Vomiting Intractability: non-intractable Nausea presence: with nausea Qualified Code(s): R11.2 - Nausea with vomiting, unspecified Discharge Date/Time: 02/12/20 00:47 Instructions: DI for Dehydration -- Adult, DI for Vomiting -- Adult Activity Restrictions/Additional Instructions: *You have been diagnosed with [vomiting and dehydration] *What to do: *Take medications as directed, consider holding off on the ritalin until follow up as it may have played a role in your vomiting *Follow up with your primary care provider in 2-3 days, call for an appointment. Let them know you were seen in the Emergency Department and that we ask that you be seen in follow up *Return to ER if you should have any new, worsening or concerning symptoms Prescriptions: No Action morphine 20 mg capsule,extend.release pellets 20 mg PO BID RF: 0 loperamide [Imodium A-D] 2 mg tablet 2 mg PO Q6HR RF: 0 lorazepam [Ativan] 0.5 mg tablet 0.5 mg PO TID PRN (Reason: Anxiety) RF: 0 irinotecan 100 mg/5 mL solution 100 mg IV ONCE RF: 0 folfirinox IV RF: 0 omeprazole 20 mg capsule,delayed release(DR/EC) 20 mg PO DAILY Qty: 30 RF: 0 bacitracin 500 unit/gram ointment 1 applictn TOP Q12H Qty: 28 RF: 0 sennosides [senna] 8.6 mg tablet 8.6 - 17.2 mg PO BID PRN (Reason: Constipation) RF: 0 prochlorperazine maleate [Compazine] 10 mg tablet 10 mg PO QID RF: 0 oxycodone [Roxicodone] 5 mg tablet 5 mg PO QID RF: 0 venlafaxine [Effexor XR] 75 mg capsule,extended release 24hr 75 mg PO DAILY RF: 0 methylphenidate HCl [Ritalin] 5 mg tablet 5 mg PO BID RF: 0 Referrals: Scott Giraldo MD [Primary Care Provider] -
[2020-02-11 19:06] LABS: Add Manual Diff / Slide Review NO; Basophils Absolute Auto 0 /uL (0-100); Basophils Percent Auto 0.2 % (0-2); Eosinophils Absolute Auto 0 /uL (0-450); Eosinophils Percent Auto 0.4 % (2-4); Hematocrit 34.6 % (36-46); Hemoglobin 11.4 g/dL (12.0-16.0); Lymphocytes Absolute Auto 700 /uL (1100-4500); Lymphocytes Percent Auto 8.2 % (25-40); Mean Corpuscular HGB Conc 32.9 % (30-36); Mean Corpuscular Hemoglobin 29.9 PG (26-34); Monocytes Absolute Auto 700 /uL (0-900); Monocytes Percent Auto 8.3 % (3-14); Neutrophils Absolute Auto 7400 /uL (1500-7000); Neutrophils Percent Auto 82.9 % (50-75); Platelet Count 119 X10^3/uL (150-400); Red Blood Cell Count 3.81 X10^6/uL (4.0-5.2); Red Cell Distribution Width 16.7 % (11.6-14.8); White Blood Cell Count 8.9 X10^3/uL (4.5-11.0)
[2020-02-11] MEDS: SODIUM CHLORIDE 0.9% 1,000 ML 1000 ML IV ×2 (19:13→21:56)
[2020-02-11] MEDS: ONDANSETRON 4 MG/2 ML INJ IV (19:13)
[2020-02-11 19:19] LABS: Alanine Aminotransferase 54 IU/L (<35); Albumin Globulin Ratio 1.8 (1.0-2.8); Alkaline Phosphatase 172 U/L (38-126); Aspartate Aminotransferase 44 IU/L (14-36); BUN Creatinine Ratio 18.2 (6-22); Bilirubin Total 0.6 mg/dL (0.2-1.3); Blood Urea Nitrogen 10 mg/dL (7-17); Carbon Dioxide 29 mmol/L (22-32); Chloride 101 mmol/L (98-107); Estimated Glomerular Filt Rate > 60.0 mL/min (>60); Globulin 2.8 g/dL (1.7-4.1); Glucose 88 mg/dL (80-110); HEMOLYSIS 36 (0-50); Potassium 3.6 mmol/L (3.4-5.1); Sodium 139 mmol/L (137-145); Total Protein 7.8 g/dL (6.3-8.2)
[2020-02-11] MEDS: PROCHLORPERAZINE 10 MG/2 ML VIAL IV (19:19)
[2020-02-11] MEDS: MORPHINE 4 MG/ML INJ IV (19:23)
[2020-02-12 00:03] VITALS: BP 123/61; BP 135/63; BP 136/64; PULSE 74; PULSE 77; PULSE 97
[2020-02-12 00:06] VITALS: PULSE 82; RESP 14; O2SAT 99
--- NOTE | 2020-02-12 00:06 | PC.NURSE ---
tolerating crackers and free water
--- NOTE | 2020-02-12 00:07 | PC.NURSE ---
patient made two laps around the unit briskly Steady gate. talking in full sentences the entire time. Denies concerns.
[2020-02-12 00:40] VITALS: BP 125/65; PULSE 77; RESP 14; O2SAT 98
== END 2020-02-12 00:47 | disposition home or self-care (01) ==
PROVIDERS: Emergency Provider Emergency Medicine; PCP Family Medicine
DX: E86.0 Dehydration (principal); R11.2 Nausea with vomiting, unspecified; C25.9 Malignant neoplasm of pancreas, unspecified; K59.00 Constipation, unspecified
CPT/HCPCS: 36415; 74019; 80053; 81003; 85025; 96361; 96374; 96375; 99284; J0780; J2270; J2405